=== PATIENT | female | born 1975 | race Caucasian/White ===

== ENCOUNTER → 2016-11-07 | Outpatient (CLI) | payer OTHER ==
[~2016-11-07] MED LIST: DICY10CA3 PO; ESTR0.6246 PO; TRAM100T3 PO
[2016-11-07 10:01] LABS: BLOOD UREA NITROGEN 13 mg/dL (7-18)
== END | disposition home or self-care (01) ==
LOC: STAR 09:00
PROVIDERS: ATTEND Orthopaedic Surgery Orthopaedic Surgery of the Spine
DX: Z01.818 Encounter for other preprocedural examination (principal)
CPT/HCPCS: 36415; 71020; 80048; 81003; 85025; 93005

== ENCOUNTER 2016-11-14 10:00 | Day surgery (SDC) | payer OTHER ==
[~2016-11-14] VITALS: Ht 172.7 cm; Wt 71.0 kg
[2016-11-14 10:20] VITALS: BP 122/85
[2016-11-14] MEDS ORDERED: OXYC-302 PO (10:24)
[2016-11-14] MEDS ORDERED: LACTATED RINGERS 1,000 ML IV SCH (10:24)
[2016-11-14] MEDS ORDERED: LIDOCAINE 1%, 2ML SQ PRN (10:30)
[2016-11-14] MEDS ORDERED: MIDAZOLAM 1 MG/ML, 2ML ONE ×2 (12:50)
[2016-11-14] MEDS ORDERED: VANCOMYCIN 1,000 MG ONE (12:51)
[2016-11-14] MEDS ORDERED: LIDOCAINE/MPF 2%-EPI 1:200K, 20 ML ONE (12:51)
[2016-11-14] MEDS ORDERED: BUPIVACAINE/PF 0.5% ONE (12:51)
[2016-11-14] MEDS ORDERED: TRANEXAMIC ACID 100 MG/ML, 10ML ONE (12:51)
[2016-11-14] MEDS ORDERED: THROMBIN 5,000 UNIT VIAL TP ONE (12:51)
[2016-11-14] MEDS ORDERED: APREPITANT 40 MG CAPSULE PO STA (12:57)
[2016-11-14] MEDS ORDERED: HYDROmorphone 1 MG/ML, 1ML IV PRN (13:00)
[2016-11-14] MEDS ORDERED: MIDAZOLAM 1 MG/ML, 2ML IV PRN (13:00)
[2016-11-14] MEDS ORDERED: LABETALOL 5MG/ML, 20ML IV PRN (13:00)
[2016-11-14] MEDS ORDERED: PROMETHAZINE 25 MG/ML, 1ML IV PRN (13:00)
[2016-11-14] MEDS ORDERED: ACETAMINOPHEN 325 MG TABLET PO PRN (13:00)
[2016-11-14] MEDS ORDERED: OXYcodone 5 MG/5 ML ORAL.SOL UDC PO PRN (13:00)
[2016-11-14] MEDS ORDERED: hydrALAzine 20 MG/ML, 1ML IV PRN (13:00)
[2016-11-14] MEDS ORDERED: ONDANSETRON 2MG/ML, 2ML IVPush PRN (13:00)
[2016-11-14] MEDS ORDERED: REMIFENTANIL 2 MG ONE (13:05)
[2016-11-14] MEDS ORDERED: PHENYLEPHRINE 10 MG/ML ONE (13:13)
[2016-11-14] MEDS ORDERED: CEFAZOLIN 1,000 MG ONE (13:13)
[2016-11-14] MEDS ORDERED: PROPOFOL 10 MG/ML, 20ML ONE (13:13)
[2016-11-14] MEDS ORDERED: ROCURONIUM 10 MG/ML ONE (13:13)
[2016-11-14] MEDS ORDERED: DEXAMETHASONE 4 MG/ML, 1ML ONE (13:13)
[2016-11-14] MEDS ORDERED: PROPOFOL 10 MG/ML, 50ML ONE (13:13)
[2016-11-14] MEDS ORDERED: KETOROLAC 30 MG/1 ML ONE (13:13)
[2016-11-14] MEDS ORDERED: VANCOMYCIN 500 MG ONE (14:27)
[2016-11-14] MEDS ORDERED: BUPIVACAINE LIPOSOME/PF INFIL ONE (14:53)
[2016-11-14] MEDS ORDERED: HYDROmorphone 1 MG/ML, 1ML ONE (14:57)
[2016-11-14] MEDS ORDERED: OXYcodone 5 MG/5 ML ORAL.SOL UDC ONE (15:28)
[2016-11-14] MEDS ORDERED: MEPERIDINE/PF 25MG/0.5ML ONE (15:28)
[2016-11-14] MEDS ORDERED: ACETAMINOPHEN 650 MG/20.3 ML UDC ONE (15:28)
[2016-11-14] MEDS ORDERED: FENTANYL PF 100 MCG/2ML ONE (15:28)
[2016-11-14] MEDS: MEPERIDINE/PF 25MG/0.5ML IVPush PRN (15:30)
[2016-11-14] MEDS: FENTANYL PF 100 MCG/2ML IV PRN ×2 (15:57→16:04)
== END 2016-11-14 17:30 | disposition home or self-care (01) ==
LOC: OUT 10:00
PROVIDERS: ATTEND Orthopaedic Surgery Orthopaedic Surgery of the Spine
DX: M51.27 Other intervertebral disc displacement, lumbosacral region (principal); K21.9 Gastro-esophageal reflux disease without esophagitis; M47.896 Other spondylosis, lumbar region
CPT/HCPCS: 63030; 72100; C9290; J0690; J1100; J1170; J1885; J2175; J2250; J2370; J2704; J3010; J3370; J3490; J7120